=== PATIENT | female | born 2000 | race American Indian/Alaskan Native ===

== ENCOUNTER 2019-02-08 11:37 | Outpatient (CLI) | payer SELFPAY ==
--- NOTE | 2019-02-09 15:13 | XRay Report ---
CHEST 2 VIEWS INDICATION: PREOP EVAL. COMPARISON: None. FINDINGS: Support devices: None. Heart: Within normal limits. Pulmonary vasculature: Normal. Lungs/pleura: The lungs are normally expanded and clear. No pleural effusion. Additional findings: None. IMPRESSION: Normal chest. Signer Name: Daniel Mcwilliams MD Signed: 02/09/2019 3:08 PM Workstation Name: [id number]
== END 2019-02-08 11:38 | disposition home or self-care (01) ==
LOC: SPVIMAG 11:37
PROVIDERS: ATTEND Emergency Medicine
DX: Z01.818 Encounter for other preprocedural examination (principal)
CPT/HCPCS: 71046